=== PATIENT | male | born 1980 | race Caucasian/White ===

== ENCOUNTER 2025-04-13 06:12 | Day surgery (SDC) | payer OTHER ==
[~2025-04-13] VITALS: Ht 188 cm; Wt 122.7 kg
[~2025-04-13 06:12] MED LIST: BUPR1FIL19 SL; NALO4SPR22 NASAL; SODIUM CHLORIDE 0.9% 1,000 ML ONE
[2025-04-13] MEDS: SODIUM CHLORIDE 0.9% 1,000 ML IV ONE (06:51)
[2025-04-13] MEDS ORDERED: PROPOFOL 1% 20 ML VIAL IVP ONE (12:00)
[2025-04-13] MEDS ORDERED: LIDOCAINE/PF 2% 5 ML VIAL ONE (12:00)
[2025-04-13] MEDS ORDERED: OXYGEN THERAPY IH SCH (20:00)
== END 2025-04-13 09:40 | disposition home or self-care (01) ==
LOC: SURGERY 06:12
PROVIDERS: ATTEND Specialist
DX: Z12.11 Encounter for screening for malignant neoplasm of colon (principal); K64.8 Other hemorrhoids; F17.210 Nicotine dependence, cigarettes, uncomplicated; Z72.89 Other problems related to lifestyle; Z98.890 Other specified postprocedural states; Z20.822 Contact with and (suspected) exposure to COVID-19
CPT/HCPCS: 45378; J2704; J3490; J7030